=== PATIENT | male | born 1995 | race Caucasian/White ===

== ENCOUNTER → 2019-10-17 | Outpatient (CLI) | payer OTHER | END | disposition home or self-care (01) | LOC: RADECHMAIN 12:03 | PROVIDERS: ATTEND Family Medicine | DX: R00.2 Palpitations (principal) | CPT/HCPCS: 93225; 93226 ==

== ENCOUNTER 2021-02-13 01:37 | Emergency (ER) | payer OTHER ==
[2021-02-13 01:49] VITALS: RESP 18
--- NOTE | 2021-02-13 02:07 | ED ---
Alcohol HPI - General Chief Complaint: Extremity Injury, Upper Stated Complaint: ETOH, hand and knee injury Time Seen by Provider: 02/13/21 01:41 Source: EMS, RN notes reviewed, old records reviewed Mode of arrival: EMS Limitations: no limitations - History of Present Illness Initial Comments: This is a 25-year-old male presented today for evaluation of intoxication. Alcohol intoxication. Patient presents today for evaluation of alcohol use as well as pain pain in his hand pain in his knee. No other injury noted. 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 -: hour(s) Previous Visits for Alcohol Intoxication?: Yes Recent Trauma: Yes Associated Symptoms: denies other symptoms Treatments Prior to Arrival: none Chronic Alcohol Use: Yes - Related Data Home Medications Medication Instructions Recorded Confirmed Levothyroxine Sodium [Synthroid] 75 mcg PO DAILY 02/16/21 02/16/21 Metoprolol Succinate (ER) [Toprol 25 mg PO DAILY 02/16/21 02/16/21 Xl] Prochlorperazine [Compazine] 5 mg PO Q6H PRN 02/16/21 02/16/21 QUEtiapine [SEROquel] 100 mg PO HS 02/16/21 02/16/21 Sertraline [Zoloft] 150 mg PO DAILY 02/16/21 02/16/21 cloNIDine HCL [Catapres] 0.1 mg PO DAILY PRN 02/16/21 02/16/21 hydrOXYzine HCL 25 mg PO TID PRN 02/16/21 02/16/21 Allergies Allergy/AdvReac Type Severity Reaction Status Date / Time No Known Allergies Allergy Verified 02/16/21 18:08 Review of Systems ROS Statement: Those systems with pertinent positive or pertinent negative responses have been documented in the HPI. ROS Other: All systems not noted in ROS Statement are negative. General Exam Limitations: no limitations General appearance: alert, in no apparent distress, appears intoxicated Head exam: Present: atraumatic, normocephalic, normal inspection Eye exam: Present: normal appearance, PERRL, EOMI. Absent: scleral icterus, c onjunctival injection, periorbital swelling ENT exam: Present: normal exam, mucous membranes moist Neck exam: Present: normal inspection. Absent: tenderness, meningismus, lymphadenopathy Respiratory exam: Present: normal lung sounds bilaterally. Absent: respiratory distress, wheezes, rales, rhonchi, stridor Cardiovascular Exam: Present: regular rate, normal rhythm, normal heart sounds. Absent: systolic murmur, diastolic murmur, rubs, gallop, clicks GI/Abdominal exam: Present: soft, normal bowel sounds. Absent: distended, tenderness, guarding, rebound, rigid Extremities exam: Present: normal inspection, full ROM, normal capillary refill. Absent: tenderness, pedal edema, joint swelling, calf tenderness Back exam: Present: normal inspection Neurological exam: Present: alert, oriented X3, CN II-XII intact Psychiatric exam: Present: normal affect, normal mood Skin exam: Present: warm, dry, intact, normal color. Absent: rash Course Vital Signs 02/13/21 02/13/21 01:40 05:26 Temperature 99 F 98.2 F Pulse Rate 96 98 Respiratory 18 18 Rate Blood Pressure 134/81 122/78 O2 Sat by Pulse 98 95 Oximetry - Reevaluation(s) Reevaluation #1: Medical record is reviewed Patient has improved symptoms here in the emergency department Patient's in no acute distress Patient informed results and questions answered Medical Decision Making - Medical Decision Making 22 female DF for evaluation, patient Dese for alcohol intoxication. He complained had pain knee pain. No injuries found. Patient can be discharged home - Radiology Data Radiology results: report reviewed (X-ray knee x-ray hand negative for acute disease), image reviewed Disposition Clinical Impression: Alcohol intoxication Disposition: HOME SELF-CARE Condition: Good Instructions (If sedation given, give patient instructions): Alcohol Intoxication (ED) Is patient prescribed a controlled substance at d/c from ED?: No Referrals: Mundo Faust DO [Primary Care Provider] - 1-2 days
--- NOTE | 2021-02-13 03:04 | XR ---
EXAMINATION TYPE: XR hand complete RT DATE OF EXAM: 02/13/2021 COMPARISON: NONE HISTORY: Pain TECHNIQUE: 2 views FINDINGS: There is deformity of the distal fifth metacarpal related to an apparent old healed fractur e. I see no acute fracture nor dislocation. There is soft tissue swelling on the dorsum of the hand. IMPRESSION: Soft tissue swelling. No acute fracture seen.
--- NOTE | 2021-02-13 03:05 | XR ---
EXAMINATION TYPE: XR knee complete LT DATE OF EXAM: 02/13/2021 COMPARISON: NONE HISTORY: Pain and bruising TECHNIQUE: 2 views FINDINGS: I see no fracture nor dislocation. Joint spaces are normal. There is no sign of joint effus ion. IMPRESSION: Negative left knee exam.
[2021-02-13 05:29] VITALS: BP 122/78; PULSE 98; TEMP 98.2
== END 2021-02-13 05:31 | disposition home or self-care (01) ==
LOC: EC 01:37
DX: F10.129 Alcohol abuse with intoxication, unspecified (principal); M25.562 Pain in left knee; M79.641 Pain in right hand; M79.89 Other specified soft tissue disorders; Y04.0XXA Assault by unarmed brawl or fight, initial encounter; Y92.89 Other specified places as the place of occurrence of the external cause
CPT/HCPCS: 99283

== ENCOUNTER 2021-02-16 16:15 | Emergency (ER) | payer OTHER ==
[2021-02-16 16:27] VITALS: BP 136/81; PULSE 90; RESP 16; TEMP 98
[2021-02-16 17:41] LABS: Amphetamine Screen,Urine Not Detected (NotDetected); Barbiturate Screen,Urine Not Detected (NotDetected); Benzodiazepines Screen,Urine Detected (NotDetected); Cocaine Screen,Urine Not Detected (NotDetected); Methadone Screen, Urine Not Detected (NotDetected); Opiate Screen,Urine Not Detected (NotDetected); Oxycodone Screen, Urine Not Detected (NotDetected); Phencyclidine Screen,Urine Not Detected (NotDetected); Tricyclic Antidepressant,Urine Not Detected (NotDetected); Urn Cannabinoid Scrn Not Detected (NotDetected)
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
== END 2021-02-16 18:31 | disposition home or self-care (01) ==
LOC: EC 16:15
DX: F32.9 Major depressive disorder, single episode, unspecified (principal); F10.129 Alcohol abuse with intoxication, unspecified; E07.9 Disorder of thyroid, unspecified; I10 Essential (primary) hypertension; F17.290 Nicotine dependence, other tobacco product, uncomplicated; Z79.899 Other long term (current) drug therapy; Z79.890 Hormone replacement therapy
CPT/HCPCS: 80306; 82075; 99284

== ENCOUNTER 2021-12-08 16:22 | Observation (INO) | payer OTHER ==
[2021-12-08 17:05] LABS: ALT 55 U/L (4-49); AST 63 U/L (17-59); African American GFR (CKD) >90 (>60 ml/min/1.73 sqM); Albumin 5.5 g/dL (3.5-5.0); Alkaline Phosphatase 96 U/L (38-126); Anion Gap 17 mmol/L; Blood Urea Nitrogen 12 mg/dL (9-20); Calcium 10.6 mg/dL (8.4-10.2); Carbon Dioxide 19 mmol/L (22-30); Chloride 102 mmol/L (98-107); Glucose 111 mg/dL (74-99); Magnesium 1.9 mg/dL (1.6-2.3); Non-African American GFR(CKD) >90 (>60 ml/min/1.73 sqM); Potassium 4.1 mmol/L (3.5-5.1); Sodium 138 mmol/L (137-145); Total Bilirubin 1.2 mg/dL (0.2-1.3); Total Protein 9.5 g/dL (6.3-8.2)
[2021-12-08 17:11] LABS: Basophils # (A) 0.1 k/uL (0-0.2); Basophils % (A) 1 %; Eosinophils # (A) 0.1 k/uL (0-0.7); Eosinophils % (A) 1 %; HCT 49.7 % (39.0-53.0); HGB 17.7 gm/dL (13.0-17.5); Lymphocytes # (A) 1.6 k/uL (1.0-4.8); Lymphocytes % (A) 13 %; MCH 31.2 pg (25.0-35.0); MCHC 35.7 g/dL (31.0-37.0); MCV 87.5 fL (80.0-100.0); Mean Platelet Volume 6.7; Monocytes # (A) 0.7 k/uL (0-1.0); Monocytes % (A) 5 %; Neutrophils # (A) 10.1 k/uL (1.3-7.7); Neutrophils % (A) 80 %; Platelet Count 337 k/uL (150-450); RBC 5.68 m/uL (4.30-5.90); RDW 13.4 % (11.5-15.5); WBC 12.7 k/uL (3.8-10.6)
[2021-12-08 17:26] LABS: INR 1.1 (<1.2)
[2021-12-08 17:27] LABS: Partial Thromboplastin Time 28.1 sec (22.0-30.0); Prothrombin Time 11.4 sec (9.0-12.0)
--- NOTE | 2021-12-08 17:27 | XR ---
EXAMINATION: XR chest 2V DATE AND TIME: 12/08/2021 5:06 PM CLINICAL INDICATION: PHH; Chest Pain TECHNIQUE: PA and lateral views COMPARISON: 11/27/2021 FINDINGS: The lungs are clear. The pleural spaces are negative. The cardiac silhouette is not enlarged. The remainder of the mediastinal silhouette is unremarkable. The skeletal structures and soft tissues are negative for acute findings. IMPRESSION: NO ACUTE PROCESS.
[2021-12-08] MEDS ORDERED: LORazepam 1 MG TAB PO STA (19:02)
--- NOTE | 2021-12-08 19:04 | ED ---
Chest Pain HPI - General Chief Complaint: Chest Pain Stated Complaint: Palpitations,High BP,Chest pains Time Seen by Provider: 12/08/21 18:49 Source: patient, RN notes reviewed Mode of arrival: ambulatory Limitations: no limitations - History of Present Illness Initial Comments: This is a pleasant 25-year-old male who presents to the emergency department complaining of palpitations and intermittent chest pain. Patient states it started a few hours ago. Patient denies any shortness of breath. Patient has had several instances of this in the past, he states some 30 times. He was recently seen here on November 27 for similar symptoms. At that time we did double the patient's metoprolol. However the patient has not followed up with his regular physician for any further care. Patient does suffer from anxiety and depression as well. Denies any fever or chills. No headache, no fever or chills, no changes in vision or hearing, no sore throat or difficulty with speech, no neck pain, no abdominal pain, no nausea or vomiting, no changes in urination or bowel movements, no numbness or tingling, no extremity pain, no skin rashes or lesions. - Related Data Home Medications Medication Instructions Recorded Confirmed Levothyroxine Sodium [Synthroid] 75 mcg PO DAILY 02/16/21 02/16/21 Metoprolol Succinate (ER) [Toprol 25 mg PO DAILY 02/16/21 02/16/21 Xl] Prochlorperazine [Compazine] 5 mg PO Q6H PRN 02/16/21 02/16/21 QUEtiapine [SEROquel] 100 mg PO HS 02/16/21 02/16/21 Sertraline [Zoloft] 150 mg PO DAILY 02/16/21 02/16/21 cloNIDine HCL [Catapres] 0.1 mg PO DAILY PRN 02/16/21 02/16/21 hydrOXYzine HCL 25 mg PO TID PRN 02/16/21 02/16/21 Previous Rx's Medication Instructions Recorded LORazepam [Ativan] 0.5 mg PO TID PRN #9 tab 12/08/21 Allergies Allergy/AdvReac Type Severity Reaction Status Date / Time No Known Allergies Allergy Verified 12/08/21 16:33 Review of Systems ROS Statement: Those systems with pertinent positive or pertinent negative responses have been documented in the HPI. ROS Other: All systems not noted in ROS Statement are negative. EKG Findings - EKG Comments: EKG Findings:: EKG done at 1638 and rhythm with ED attending physician reveals sinus rhythm rate of 99. Normal axis. Artifact noted. Normal intervals. No acute ST or T-wave changes. 1 compared to previous study from 11/27/2021 there is no significant change. Past Medical History Past Medical History: Hypertension, Thyroid Disorder History of Any Multi-Drug Resistant Organisms: None Reported Past Surgical History: No Surgical Hx Reported Past Psychological History: Anxiety, Bipolar, Depression Smoking Status: Vaper Past Alcohol Use History: Abuse, Daily, Heavy Past Drug Use History: None Reported General Exam - General Exam Comments Initial Comments: Patient in mild distress, appears to be anxious, vital signs reviewed, cranial nerves II through XII grossly intact Limitations: no limitations General appearance: alert, in distress Head exam: Present: atraumatic, normocephalic, normal inspection Eye exam: Present: normal appearance, PERRL, EOMI. Absent: scleral icterus, conjunctival injection, periorbital swelling ENT exam: Present: normal exam, mucous membranes moist Neck exam: Present: normal inspection, full ROM. Absent: tenderness, meningismus, lymphadenopathy Respiratory exam: Present: normal lung sounds bilaterally, chest wall tenderness. Absent: respiratory distress, wheezes, rales, rhonchi, stridor, accessory muscle use, decreased breath sounds, prolonged expiratory Cardiovascular Exam: Present: regular rate, normal rhythm, normal heart sounds. Absent: systolic murmur, diastolic murmur, rubs, gallop, clicks GI/Abdominal exam: Present: soft, normal bowel sounds. Absent: distended, tenderness, guarding, rebound, rigid Extremities exam: Present: normal inspection, full ROM, normal capillary refill. Absent: tenderness, pedal edema, joint swelling, calf tenderness Back exam: Present: normal inspection Neurological exam: Present: alert, oriented X3, CN II-XII intact Psychiatric exam: Present: normal affect, normal mood Skin exam: Present: warm, dry, intact, normal color. Absent: rash Course Vital Signs 12/08/21 16:31 Temperature 97.7 F Pulse Rate 104 H Respiratory 20 Rate Blood Pressure 160/104 O2 Sat by Pulse 100 Oximetry Chest Pain MDM - MDM She presents with recurrent palpitations. Patient also has chest wall tenderness. Suspect this is related to anxiety as the patient has a normal chest x-ray, no changes to his EKG, normal troponin, normal d-dimer. Minimal elevations to liver enzymes are nonspecific. Discussed the findings with the patient. All questions answered. The case was discussed in detail with ED attending physician. Presentation, findings, treatment plan discussed in detail. Dr. Poole Patient was told to return to the ER for any signs or symptoms worsen. Told to return immediately if any other problems arise. All questions answered. Treatment plan discussed. Patient in agreement Every effort has been made to ensure accuracy of this dictation. However, due to the limitations of electronic medical records and dictation devices, errors in charting still occur. Disposition Clinical Impression: Palpitations, Chest wall pain, Anxiety, Uncontrolled hypertension Disposition: HOME SELF-CARE Condition: Stable Instructions (If sedation given, give patient instructions): Chest Pain (ED), Hypertension (ED), Anxiety (ED) Additional Instructions: Follow-up with the regular doctor. Call tomorrow for an appointment. Return to the ER if any symptoms worsen. Prescriptions: LORazepam [Ativan] 0.5 mg PO TID PRN #9 tab PRN Reason: Anxiety Is patient prescribed a controlled substance at d/c from ED?: Yes If prescribed controlled substance>3 days was MAPS reviewed?: Prescribed <3 Days Referrals: Efren Grier [Primary Care Provider] - 1-2 days Time of Disposition: 19:46
[2021-12-08] MEDS ORDERED: LORazepam 1 MG TAB PO ONE (19:30)
[2021-12-08 19:43] LABS: Amphetamine Screen,Urine Detected (NotDetected); Barbiturate Screen,Urine Not Detected (NotDetected); Benzodiazepines Screen,Urine Not Detected (NotDetected); Cocaine Screen,Urine Not Detected (NotDetected); Methadone Screen, Urine Not Detected (NotDetected); Opiate Screen,Urine Not Detected (NotDetected); Oxycodone Screen, Urine Not Detected (NotDetected); Phencyclidine Screen,Urine Not Detected (NotDetected); Tricyclic Antidepressant,Urine Not Detected (NotDetected); Urn Cannabinoid Scrn Detected (NotDetected)
[2021-12-08] MEDS ORDERED: cloNIDine HCL 0.2 MG TAB PO STA (20:13)
[2021-12-08] MEDS ORDERED: NALOXONE 0.4 MG/ML 1 ML VIAL IV PRN (21:46)
[2021-12-08] MEDS ORDERED: MORPHINE SULFATE 4 MG/ML SYRINGE IV PRN (21:46)
[2021-12-08] MEDS ORDERED: LORazepam 0.5 MG TAB PO PRN ×2 (21:46→23:19)
[2021-12-08] MEDS ORDERED: ONDANSETRON 4 MG/2 ML VIAL IVP PRN (21:46)
[2021-12-08] MEDS ORDERED: ACETAMINOPHEN TAB 325 MG TAB PO PRN (21:46)
[2021-12-08] MEDS ORDERED: LABETALOL 5 MG/ML VIAL MDV IVP ONE ×2 (22:00→23:30)
[2021-12-08] MEDS: SODIUM CHLORIDE 0.9% 1,000 ML IV SCH (22:30)
[2021-12-08] MEDS ORDERED: LORazepam 2 MG/ML INJ IV PRN ×4 (23:22→23:59)
[2021-12-08] MEDS ORDERED: cloNIDine HCL 0.2 MG TAB PO PRN (23:23)
[2021-12-08] MEDS ORDERED: METOPROLOL TARTRATE 50 MG TAB PO ONE (23:30)
[2021-12-09] MEDS ORDERED: cloNIDine HCL 0.1 MG TAB PO PRN (00:44)
--- NOTE | 2021-12-09 00:47 | P.HPIM ---
History of Present Illness H&P Date: 12/08/21 Chief Complaint: anxiety , chest pressure 25 year old male with hypothyroid , hypertension , bipolar disorder patient comes in with episode of chest tightness , hear racing, what he describes frequent anxiety/panic attacks. he was out with his friends , nothing stressful , parking the car, when suddenly felt another episode of what he describes is frequent anxiety attacks. he denies any syncope or near syncope, but he does feel chest tightness, palpitations, diaphoresis, and heavy breathing. he is not aware of secondary causes of hypertension like pheochromocytoma, or renal artery stenosis, he is not aware of any workup , but admits to history of hypertension , he is currently on metoprolol where his doctor has been increasing dosage for better control, however, he notices readings occasionally in the high 190 to low 200. and heart racing in the 100s he also admit to long history of alcohol abuse, he used to drink liquor however,recently cut back and switched to beers only , his last drink is yesterday and usually cant go more than 2 days without alcohol , he had severe withdrawals in the past and withdrawal seizures. patient claims last drink was yesterday he denies any recreational drugs or tobacco smoking however, when asked about his positive urine drug screen results with meth, amphetamin and marijuana. he explained smoking marijuana recently once, and taking one pill of adderall denies any respiratory symptoms, abd pain, nausea or vomiting, or diarrhea Review of Systems Pertinent positives as noted in HPI. All other systems were reviewed and are negative Past Medical History Past Medical History: Hypertension, Thyroid Disorder History of Any Multi-Drug Resistant Organisms: None Reported Past Surgical History: No Surgical Hx Reported Past Psychological History: Anxiety, Bipolar, Depression Smoking Status: Vaper Past Alcohol Use History: Abuse, Daily, Heavy Past Drug Use History: None Reported - Past Family History family Family Medical History: No Reported History Medications and Allergies Home Medications Medication Instructions Recorded Confirmed Type Levothyroxine Sodium [Synthroid] 75 mcg PO DAILY 02/16/21 12/08/21 History Metoprolol Succinate (ER) [Toprol 25 mg PO DAILY 02/16/21 12/08/21 History Xl] QUEtiapine [SEROquel] 100 mg PO HS 02/16/21 12/08/21 History Sertraline [Zoloft] 150 mg PO DAILY 02/16/21 12/08/21 History cloNIDine HCL [Catapres] 0.1 mg PO DAILY PRN 02/16/21 12/08/21 History hydrOXYzine HCL 25 mg PO TID PRN 02/16/21 12/08/21 History LORazepam [Ativan] 0.5 mg PO TID PRN #9 tab 12/08/21 Rx Allergies Allergy/AdvReac Type Severity Reaction Status Date / Time No Known Allergies Allergy Verified 12/08/21 22:15 Physical Exam Vitals: Vital Signs Temp Pulse Resp BP Pulse Ox 12/08/21 22:30 97 20 174/122 12/08/21 22:00 114 H 18 213/127 12/08/21 21:30 93 12 212/125 12/08/21 20:30 96 16 190/127 12/08/21 16:31 97.7 F 104 H 20 160/104 100 Intake and Output 12/08/21 12/08/21 12/09/21 14:59 22:59 06:59 Other: Weight 101.151 kg Constitutional: Nanxious, conversant, pleasant Eyes: Anicteric sclerae, moist conjunctiva, Pupils equal round reactive to light ENMT: NC/AT Oropharynx clear, no erythema, or exudates Neck: Supple, no masses, or JVD No carotid bruits No thyromegaly Lungs: Clear to auscultation Clear to percussion Normal respiratory effort, no accessory muscle use Cardiovascular: Heart regular in rate and rhythm, No murmurs, gallops, or rubs No peripheral edema Abdominal: Soft Nontender, no guarding, rebound or rigidity Abdomen moving with respiration Normoactive bowel sounds No hepatomegaly, No splenomegaly No palpable mass No abdominal wall hernia noted Skin: Normal temperature, tone, texture, turgor No induration No subcutaneous nodules No rash, lesions No ulcers Extremities: No digital cyanosis No clubbing Pedal pulses intact and symmetrical Radial pulses intact and symmetrical No calf tenderness Psychiatric: Alert and oriented to person, place and time Appropriate affect fair judgement Neuro Muscles Strength 5/5 in all 4 extremities Sensation to light touch grossly present throughout Cranial nerves II-XII grossly intact No focal sensory deficits Lymphatics: no palpable cervical or supraclavicular , or inguinal lymph nodes Results CBC & Chem 7: 12/08/21 16:45 12/08/21 16:45 Labs: Abnormal Lab Results - Last 24 Hours (Table) 12/08/21 12/08/21 12/08/21 Range/Units 16:45 16:45 19:25 WBC 12.7 H (3.8-10.6) k/uL Hgb 17.7 H (13.0-17.5) gm/dL Neutrophils # 10.1 H (1.3-7.7) k/uL Carbon Dioxide 19 L (22-30) mmol/L Glucose 111 H (74-99) mg/dL Calcium 10.6 H (8.4-10.2) mg/dL AST 63 H (17-59) U/L ALT 55 H (4-49) U/L Total Protein 9.5 H (6.3-8.2) g/dL Albumin 5.5 H (3.5-5.0) g/dL Ur Amphetamines Screen Detected H (NotDetected) U Methamphetamines Scrn Detected H (NotDetected) U Marijuana (THC) Screen Detected H (NotDetected) Assessment and Plan Assessment: anxiety/panic attacks rule out secondary causes of hypertension alcohol withdrawal , with autonomic dysfunction uncontrolled hypertension plan check plasma free metanephrine renal artery duplex US clonidine PRN continue with home dose of metoprolol alcohol withdrawal precautions seizure precautions PRN benzo per CIWA thiamine polysubstance abuse positive urine drug screen positive amphetamine and marijuana hypothyroid resume home meds check tsh free t4 DVT PPX heparin sc tid full code anticipated length of stay > 2 midnights
[2021-12-09] MEDS: LORazepam 2 MG/ML INJ IV PRN ×6 (01:50→10:21)
[2021-12-09] MEDS ORDERED: cloNIDine HCL 0.1 MG TAB PO STA (04:35)
[2021-12-09] MEDS: SODIUM CHLORIDE 0.9% 1,000 ML IV SCH ×2 (05:47→13:14)
[2021-12-09] MEDS: LEVOTHYROXINE 75 MCG TAB PO SCH (06:49)
[2021-12-09] MEDS: METOPROLOL TARTRATE 50 MG TAB PO SCH (08:55)
[2021-12-09] MEDS: SERTRALINE 50 MG TAB PO SCH (08:55)
[2021-12-09] MEDS: METOPROLOL SUCCINATE (ER) 25 MG TAB.ER.24H PO SCH (08:55)
[2021-12-09 09:37] LABS: African American GFR (CKD) 98.2 (60.0-200.0); Anion Gap 16.7 mmol/L (10.00-18.00); BUN/Creat Ratio 11.75 Ratio (12.00-20.00); Blood Urea Nitrogen 14.1 mg/dL (9.0-27.0); Calcium 10.2 mg/dL (8.7-10.3); Carbon Dioxide 20.3 mmol/L (20.0-27.5); Magnesium 2.1 mg/dL (1.5-2.4); Non-African American GFR(CKD) 84.7 (60.0-200.0); Potassium 4.1 mmol/L (3.5-5.5)
--- NOTE | 2021-12-09 09:40 | XR ---
EXAMINATION TYPE: XR elbow complete LT DATE OF EXAM: 12/09/2021 COMPARISON: None HISTORY: Possible foreign body TECHNIQUE: 3 view left elbow FINDINGS: No acute fracture or dislocation is evident. Radius aligns normally with the humerus. Attention is paid to the antecubital fossa and soft tissues. No radiopaque foreign bodies are identif ied. IMPRESSION: 1. No radiopaque foreign bodies identified. 2. No acute osseous abnormality.
[2021-12-09] MEDS ORDERED: LABETALOL 5 MG/ML VIAL MDV IVP PRN (11:59)
[2021-12-09] MEDS ORDERED: chlorproMAZINE 25 MG TAB PO STA (12:41)
[2021-12-09] MEDS ORDERED: chlorproMAZINE 25 MG/ML 2 ML AMP IM PRN (13:00)
[2021-12-09] MEDS ORDERED: chlorproMAZINE 25 MG TAB PO PRN (13:00)
--- NOTE | 2021-12-09 13:13 | P.CN ---
Psychiatric Consult - . Consult date: 12/09/21 Consult:: 12/09/21 13:12 IDENTIFYING DATA: This patient is a 24-year-old male with a significant history of methamphetamine abuse who presented to the hospital with complaints of palpitations and chest pain. HISTORY OF PRESENT ILLNESS: The patient presented to the hospital on 12/08/2021, with a chief complaint of palpitations and chest pain. The patient has been previously evaluated on 11/27/2021, with similar symptoms. Psychiatry has been consulted for a psychiatric evaluation. Continues to be elevated at 183/130 with a heart rate of 107 beats per minute. Upon evaluation in the emergency department, the patient appears to be grossly disorganized at this time. He is a poor historian of events leading up to his presentation in the emergency department. Currently, the patient is unable to verbalize why psychiatry speaking with him. He appears to be fixated and concern that the nurses are "lying about me to others." He has difficulty in answering questions and focusing on with this provider is asking of him. The patient does admit that he used methamphetamines. He states that it has been more than a week since he last used however as the interview progressed, he admitted to recent methamphetamine, Adderall, and "one other drug." The patient is unable to verbalize clearly when he last used. He is denying any auditory or visual hallucinations at this time. He reports no suicidal or homicidal ideation, intention, and/or plan. He does report that he has been having difficulty with sleep was unable to verbalize when he last left. PAST PSYCHIATRIC HISTORY: Patient is unable to provide any clear psychiatric history. Patient is currently prescribed regimen of Vistaril, Zoloft, Seroquel, and Catapres. The patient reports that he was hospitalized psychiatrically when he was in his teens. He does report that during that time, he was "using a lot of drugs." He does report that he follows up outpatient was unable to identify where and with whom. He denies any prior attempts at suicide at this time. PAST MEDICAL HISTORY: Past Medical History: Hypertension, Thyroid Disorder History of Any Multi-Drug Resistant Organisms: None Reported Past Surgical History: No Surgical Hx Reported Past Psychological History: Anxiety, Bipolar, Depression Smoking Status: Vaper Past Alcohol Use History: Abuse, Daily, Heavy Past Drug Use History: None Reported ALLERGIES: NO KNOWN DRUG ALLERGIES CHEMICAL DEPENDENCY HISTORY: As per chart review, the patient has a previous history of acute alcohol withdrawal and intoxication. He has been testing positive for methamphetamines and amphetamines. He is unable to verbalize what he has been using but does admit to using meth and Adderall illicitly to this provider. FAMILY PSYCHIATRIC/SUBSTANCE USE HISTORY: Unable to obtain at this time. SOCIAL HISTORY: Patient is listed as single and part-time employed. Unable to determine other social history at this time per MENTAL STATUS EXAM: General Appearance: Patient appears to be stated age is alert and very guarded. Patient appears to have slightly disheveled hygiene and grooming wearing hospital gown with poor eye contact. Behavior: Patient presents with psychomotor agitation. He constantly looks out the window of his room and expresses "the nurse is lying about me." Speech: Patient's speech is nonsensical, difficult to follow, hyperverbal, repetitive. Mood/Affect: Patient reports their mood is "I don't know", affect is intense Suicidality/Homicidality: Currently denying suicidal or homicidal ideation. Perceptions: Unable to determine at this time. Though content/process: Patient appears to be grossly intoxicated and likely under the influence of methamphetamines. Paranoid delusional thought content is endorsed. Memory and concentration: Grossly poor at this time. Judgment and insight: Very poor. Vital Signs Temp 98.6 F 12/09/21 13:07 Pulse 105 H 12/09/21 13:07 Resp 20 12/09/21 13:07 BP 181/121 12/09/21 13:07 Pulse Ox 97 12/09/21 13:07 Intake & Output 12/08/21 12/09/21 12/09/21 18:59 06:59 18:59 Weight 101.151 kg 101.151 kg Laboratory Results - Last 24 Hours 12/08/21 12/08/21 12/08/21 16:45 16:45 16:45 WBC 12.7 H RBC 5.68 Hgb 17.7 H Hct 49.7 MCV 87.5 MCH 31.2 MCHC 35.7 RDW 13.4 Plt Count 337 MPV 6.7 Neutrophils % 80 Lymphocytes % 13 Monocytes % 5 Eosinophils % 1 Basophils % 1 Neutrophils # 10.1 H Lymphocytes # 1.6 Monocytes # 0.7 Eosinophils # 0.1 Basophils # 0.1 PT 11.4 INR 1.1 APTT 28.1 D-Dimer <0.17 Sodium 138 Potassium 4.1 Chloride 102 Carbon Dioxide 19 L Anion Gap 17 BUN 12 Creatinine 1.06 Est GFR (CKD-EPI)AfAm >90 Est GFR (CKD-EPI)NonAf >90 BUN/Creatinine Ratio Glucose 111 H Calcium 10.6 H Magnesium 1.9 Total Bilirubin 1.2 AST 63 H ALT 55 H Alkaline Phosphatase 96 Troponin I Total Protein 9.5 H Albumin 5.5 H TSH Free (T4) Reflex I Urine Opiates Screen Ur Oxycodone Screen Urine Methadone Screen Ur Propoxyphene Screen Ur Barbiturates Screen U Tricyclic Antidepress Ur Phencyclidine Scrn Ur Amphetamines Screen U Methamphetamines Scrn U Benzodiazepines Scrn Urine Cocaine Screen U Marijuana (THC) Screen 12/08/21 12/08/21 12/09/21 16:45 19:25 01:33 WBC RBC Hgb Hct MCV MCH MCHC RDW Plt Count MPV Neutrophils % Lymphocytes % Monocytes % Eosinophils % Basophils % Neutrophils # Lymphocytes # Monocytes # Eosinophils # Basophils # PT INR APTT D-Dimer Sodium Potassium Chloride Carbon Dioxide Anion Gap BUN Creatinine Est GFR (CKD-EPI)AfAm Est GFR (CKD-EPI)NonAf BUN/Creatinine Ratio Glucose Calcium Magnesium Total Bilirubin AST ALT Alkaline Phosphatase Troponin I <0.012 <0.012 Total Protein Albumin TSH Free (T4) Reflex I Urine Opiates Screen Not Detected Ur Oxycodone Screen Not Detected Urine Methadone Screen Not Detected Ur Propoxyphene Screen Not Detected Ur Barbiturates Screen Not Detected U Tricyclic Antidepress Not Detected Ur Phencyclidine Scrn Not Detected Ur Amphetamines Screen Detected H U Methamphetamines Scrn Detected H U Benzodiazepines Scrn Not Detected Urine Cocaine Screen Not Detected U Marijuana (THC) Screen Detected H 12/09/21 12/09/21 05:40 05:40 WBC RBC Hgb Hct MCV MCH MCHC RDW Plt Count MPV Neutrophils % Lymphocytes % Monocytes % Eosinophils % Basophils % Neutrophils # Lymphocytes # Monocytes # Eosinophils # Basophils # PT INR APTT D-Dimer Sodium 134 L Potassium 4.1 Chloride 97 Carbon Dioxide 20.3 Anion Gap 16.70 BUN 14.1 Creatinine 1.2 Est GFR (CKD-EPI)AfAm 98.2 Est GFR (CKD-EPI)NonAf 84.7 BUN/Creatinine Ratio 11.75 L Glucose 135 H Calcium 10.2 Magnesium 2.1 Total Bilirubin AST ALT Alkaline Phosphatase Troponin I <0.012 Total Protein Albumin TSH 8.490 H Free (T4) Reflex I 1.540 Urine Opiates Screen Ur Oxycodone Screen Urine Methadone Screen Ur Propoxyphene Screen Ur Barbiturates Screen U Tricyclic Antidepress Ur Phencyclidine Scrn Ur Amphetamines Screen U Methamphetamines Scrn U Benzodiazepines Scrn Urine Cocaine Screen U Marijuana (THC) Screen IMPRESSIONS: Acute stimulant intoxication Methamphetamine use disorder Stimulant use disorder PLAN: -At this time patient DOES NOT meet criteria for inpatient psychiatric admission. The patient is currently not medically stable with elevated blood pressure and heart rate. The patient does appear to be acutely intoxicated at this time. Psychiatry will continue to evaluate whether the patient requires inpatient psychiatric care upon medical stabilization. -Would recommend the following medication changes/additions: Continue home regimen of Seroquel, Zoloft, and clonidine. We'll administer one- time dose of 50 mg of Thorazine in order to address acute agitation at this time. Thorazine 50 mg IM every 6 hours when necessary ordered for agitation/acute psychosis. -Continue 1:1 sitter for safety -Cannot leave AMA at this time. Patient is currently does not have capacity for medical decision making as he is acutely intoxicated. -Psychiatry will continue to follow along. If the patient continues to display prolonged psychosis, we will consider inpatient psychiatric hospitalization. 12/09/21 13:12
--- NOTE | 2021-12-09 13:57 | US ---
EXAMINATION TYPE: US renal artery duplex complet DATE OF EXAM: 12/09/2021 COMPARISON: NONE CLINICAL HISTORY: uncontrolled BP, renal artery stenosis ?. MEASUREMENTS: RENAL SIZE: Rt Kidney: 11.1 x 4.4 x 5.5 cm Lt Kidney: 12.0 x 5.5 x 5.7 cm RESISTANCE INDEX Unable to obtain. RA/AO RATIO (< 3.5 ) Right: 2.1 Left: 1.9 RA VELOCITY ( < 180 cm/s) Right: 163 Left: 150 Patient unable to cooperate for exam. Basically a non diagnostic exam. Limited doppler signals as pat ient cannot hold still or hold breath. There is good color perfusion to kidneys. Possibly a CTA coul d be performed if there is suspected renal artery stenosis. IMPRESSION: No obvious stenosis is evident. Exam is limited due to patient cooperation. Color flow appears to be present without obstruction.
[2021-12-09] MEDS ORDERED: NICOTINE 7MG/24HR PATCH TRANSDERM STA (14:17)
--- NOTE | 2021-12-09 15:29 | P.PN ---
Subjective Progress Note Date: 12/09/21 Principal diagnosis: etoh and meth abuse Today patient is having auditory and visual hallucinations. He is seeing ''people punching his mother'. He states he was having chest and neck pain. No sob. No fevers. His last etoh use was yesterday according to him. Objective - Vital Signs Vital signs: Vital Signs Temp 98.6 F 12/09/21 13:07 Pulse 101 H 12/09/21 15:00 Resp 18 12/09/21 15:00 BP 153/77 12/09/21 15:00 Pulse Ox 100 12/09/21 15:00 Intake & Output 12/08/21 12/09/21 12/09/21 18:59 06:59 18:59 Weight 101.151 kg 101.151 kg - Exam Constitutional: No acute distress, conversant, pleasant Eyes:Anicteric sclerae, moist conjunctiva, no lid-lag, PERRLA, ENMT: Oropharynx clear, no erythema, exudates Neck: Supple, FROM, no masses, or JVD, No carotid bruits, No thyromegaly Lungs: Clear to auscultation, Clear to percussion, Normal respiratory effort, no accessory muscle use Cardiovascular: Tachy, regular in rate and rhythm, No murmurs, gallops, or rubs, No peripheral edema Abdominal: Soft, Nontender, no guarding, rebound or rigidity, Normoactive bowel sounds, No hepatomegaly, No splenomegaly, No palpable mass Skin: Normal temperature, tone, texture, turgor, no induration, No subcutaneous nodules, No rash, lesions, No ulcers Extremities: No digital cyanosis, No clubbing, Pedal pulses intact and symmetrical, Radial pulses intact and symmetrical, No calf tenderness Psychiatric: Alert and oriented to person, place and time, impaired judgment Neuro: Bilateral tremors. Muscles Strength 5/5 in all 4 extremities, Sensation to light touch grossly present throughout, Cranial nerves II-XII grossly intact, no focal sensory deficits - Labs CBC & Chem 7: 12/08/21 16:45 12/09/21 05:40 Labs: Abnormal Lab Results - Last 24 Hours (Table) 12/08/21 12/08/21 12/08/21 Range/Units 16:45 16:45 19:25 WBC 12.7 H (3.8-10.6) k/uL Hgb 17.7 H (13.0-17.5) gm/dL Neutrophils # 10.1 H (1.3-7.7) k/uL Sodium (135-145) mmol/L Carbon Dioxide 19 L (22-30) mmol/L BUN/Creatinine Ratio (12.00-20.00) Ratio Glucose 111 H (74-99) mg/dL Calcium 10.6 H (8.4-10.2) mg/dL AST 63 H (17-59) U/L ALT 55 H (4-49) U/L Total Protein 9.5 H (6.3-8.2) g/dL Albumin 5.5 H (3.5-5.0) g/dL TSH (0.350-5.500) uIU/mL Ur Amphetamines Screen Detected H (NotDetected) U Methamphetamines Scrn Detected H (NotDetected) U Marijuana (THC) Screen Detected H (NotDetected) 12/09/21 Range/Units 05:40 WBC (3.8-10.6) k/uL Hgb (13.0-17.5) gm/dL Neutrophils # (1.3-7.7) k/uL Sodium 134 L (135-145) mmol/L Carbon Dioxide (22-30) mmol/L BUN/Creatinine Ratio 11.75 L (12.00-20.00) Ratio Glucose 135 H (74-99) mg/dL Calcium (8.4-10.2) mg/dL AST (17-59) U/L ALT (4-49) U/L Total Protein (6.3-8.2) g/dL Albumin (3.5-5.0) g/dL TSH 8.490 H (0.350-5.500) uIU/mL Ur Amphetamines Screen (NotDetected) U Methamphetamines Scrn (NotDetected) U Marijuana (THC) Screen (NotDetected) Assessment and Plan Plan: Anxiety/panic attacks Acute psychosis ETOH withdrawal with delirium tremens Uncontrolled hypertension polysubstance abuse with urine drug screen positive amphetamine and marijuana Add labetalol for bp control clonidine PRN continue with home dose of metoprolol alcohol withdrawal precautions and CIWA protocol. seizure precautions thiamine Consult psych hypothyroid resume home meds DVT PPX heparin sc tid full code
[2021-12-09] MEDS ORDERED: QUEtiapine 100 MG TAB PO SCH (21:00)
[2021-12-10 02:01] VITALS: RESP 18
[2021-12-10] MEDS: SODIUM CHLORIDE 0.9% 1,000 ML IV SCH ×3 (04:24→07:40)
[2021-12-10] MEDS: METOPROLOL TARTRATE 50 MG TAB PO SCH ×2 (04:25→07:40)
[2021-12-10] MEDS: LEVOTHYROXINE 75 MCG TAB PO SCH (06:44)
[2021-12-10] MEDS: SERTRALINE 50 MG TAB PO SCH (07:39)
[2021-12-10] MEDS: METOPROLOL SUCCINATE (ER) 25 MG TAB.ER.24H PO SCH (07:40)
[2021-12-10 11:54] VITALS: BP 124/74; PULSE 54; TEMP 97.6
--- NOTE | 2021-12-10 14:34 | P.DS ---
Providers Date of admission: 12/09/21 00:00 Expected date of discharge: 12/10/21 Attending physician: Pavan Carrasco MD Consults: 12/09/21 10:07 Consult Physician Stat Consulting Provider: Virgilio Bassett Reason/Comments: psych evaluation Do you want consulting provider notified?: Already Contacted Primary care physician: [facility] Course: 25 year old male with hypothyroid , hypertension , bipolar disorder long hx of substance abuse presented with chest tightness , heart racing, what he describes frequent anxiety/panic attacks. He was out with his friends, when suddenly felt another episode of what he describes is frequent anxiety attacks. No syncope or near syncope, but he does feel chest tightness, palpitations, diaphoresis, and heavy breathing. He admits to long history of alcohol abuse, he used to drink liquor however, recently cut back and switched to beers only , his last drink was the day prior to admission and usually can't go more than 2 days without alcohol, he had severe withdrawals in the past and withdrawal seizures. In the emergency department his blood pressure was elevated at 200 systolic. He was resumed on metoprolol and clonidine. Was also initiated on labetalol IV when necessary. He was subsequently admitted. During the admission he has some psychosis with auditory and visual hallucinations. This was most likely secondary to alcohol withdrawal. He was treated with Ativan as needed per the [facility] protocol. Urine tested positive for marijuana, methamphetamine. Hypertension is likely due to his substance abuse as well as withdrawal. He was seen by psychiatry as well. The next day he was almost back to normal. He denied any psychotic symptoms. He was alert and oriented. He was cleared by psychiatry for discharge. I discussed with his nurse that he needed substance abuse programs referral. He was counseled to quit alcohol and methamphetamine abuse. Time for discharge 35 min Patient Condition at Discharge: Stable Plan - Discharge Summary Discharge Rx Participant: No New Discharge Prescriptions: New LORazepam [Ativan] 0.5 mg PO TID PRN #9 tab PRN Reason: Anxiety Continue Levothyroxine Sodium [Synthroid] 75 mcg PO DAILY Sertraline [Zoloft] 150 mg PO DAILY QUEtiapine [SEROquel] 100 mg PO HS hydrOXYzine HCL 25 mg PO TID PRN PRN Reason: Anxiety cloNIDine HCL [Catapres] 0.1 mg PO DAILY PRN PRN Reason: HIGH BP Metoprolol Succinate (ER) [Toprol XL] 25 mg PO DAILY Discharge Medication List Levothyroxine Sodium [Synthroid] 75 mcg PO DAILY 02/16/21 [History] Metoprolol Succinate (ER) [Toprol XL] 25 mg PO DAILY 02/16/21 [History] QUEtiapine [SEROquel] 100 mg PO HS 02/16/21 [History] Sertraline [Zoloft] 150 mg PO DAILY 02/16/21 [History] cloNIDine HCL [Catapres] 0.1 mg PO DAILY PRN 02/16/21 [History] hydrOXYzine HCL 25 mg PO TID PRN 02/16/21 [History] LORazepam [Ativan] 0.5 mg PO TID PRN #9 tab 12/08/21 [Rx] Follow up Appointment(s)/Referral(s): Efren Grier [Primary Care Provider] - 1-2 days Patient Instructions/Handouts: Chest Pain (ED), Hypertension (ED), Anxiety (ED) Activity/Diet/Wound Care/Special Instructions: Follow-up with the regular doctor. Call tomorrow for an appointment. Return to the ER if any symptoms worsen.
--- NOTE | 2021-12-11 11:47 | P.PN ---
Subjective Progress Note Date: 12/10/21 Principal diagnosis: Acute stimulant intoxication Psychiatry Follow-up Note Patient was seen in follow-up on 12/10/2021 in weekend cross-coverage. Patient was found resting in his hospital bed with one-to-one sitter at bedside to maintain safety. He is alert and oriented to person place time and situation. He reports his mood is better than it has been. He denies suicidal ideations plan or intent. He denies homicidal ideations plan or intent. He denies his methamphetamine intoxication as being a suicide attempt. He notes reasons for living. He minimizes his substance abuse, but also states he does not plan on using methamphetamine ever again since this episode has taught him a lesson. He feels ready for discharge. He was living with his parents prior to admission. I called his parents (mom Enriqueta Medeiros and father Byron Medeiros [phone]). Mother denies patient has endorsed suicidal ideations or that this was a suicide attempt. Parents do report ongoing concern about his substance abuse and like to see him in treatment for substance abuse. Parents report concern that he has been stealing from them and trying to hide his substance abuse. Parents state that he will have to find another place to live because of these actions. Objective - Vital Signs Vital signs: Vital Signs Temp 97.6 F 12/10/21 11:53 Pulse 54 L 12/10/21 11:53 Resp 18 12/10/21 11:53 BP 124/74 12/10/21 11:53 Pulse Ox 99 12/10/21 11:53 Intake & Output 12/09/21 12/10/21 12/10/21 18:59 06:59 18:59 Intake Total 520 Balance 520 Weight 101.151 kg Intake: Oral 520 - Exam General Appearance: Patient appears to be stated age. He is showered with average hygiene and grooming. He is dressed in hospital attire and maintains fair eye contact. Orientation: He is awake, alert, oriented to person, place, time and situation. Behavior: Patient is guarded. Speech: Speech is fluent, coherent and normal in rate/volume/tone. Mood/Affect: Patient reports his mood as "better than it has been", affect is congruent Suicidality/Homicidality: He denies suicidal or homicidal ideation, plan or intent. Perceptions: He denies auditory or visual hallucinations. Does not appear to be attending to internal stimuli Though content/process: Patient appears to be utilizing defense mechanisms of denial and minimization regarding his substance abuse. No paranoid delusional thought content expressed. Memory and concentration: Grossly intact. Judgment and insight: Poor insight and judgment in regards to substance abuse. - Constitutional General appearance: Present: average body habitus - EENT Eyes: Present: normal appearance - Labs CBC & Chem 7: 12/08/21 16:45 12/09/21 05:40 Assessment and Plan Assessment: IMPRESSIONS: Acute stimulant intoxication, resolved Methamphetamine use disorder Stimulant use disorder Plan: PLAN: -At this time patient DOES NOT meet criteria for inpatient psychiatric admission. He is denying suicidal or homicidal ideations, plan, or intent. He denies his ingestion was a suicide attempt. There is no evidence of psychosis or jamie at this time. Can discontinue one-to-one sitter for safety since patient does not appear to pose an eminent threat to self or others at this time. -Medications: Continue home regimen of Seroquel, Zoloft, and clonidine. -Patient should follow up with primary provider within 1 -2 weeks. -Patient and his family were educated on the importance of patient linking with counseling and substance abuse treatment program as soon as possible following discharge for chronic substance abuse treatment. I have discussed this recommendation with the internal medicine physician, patient's nurse, and [facility] social sciences research scientist as well. He will be provided with information on community substance abuse treatment resources prior to discharge. -Patient was educated to abstain from all mood altering substances. Time with Patient: Greater than 30
[2021-12-16 19:38] LABS: Metanephrine, Free 64 pg/mL (< OR = 57); Normetanephrine, Free 68 pg/mL (< OR = 148); Total, Free (MN + NMN) 132 pg/mL (< OR = 205)
== END 2021-12-10 18:27 | disposition home or self-care (01) ==
LOC: EC 16:22 → 6NMEDSUR 12-09 → 3SCARD 12-09 10:12
PROVIDERS: ADMIT Internal Medicine; ATTEND Internal Medicine
DX: F41.0 Panic disorder [episodic paroxysmal anxiety] (principal); F10.231 Alcohol dependence with withdrawal delirium; I10 Essential (primary) hypertension; F15.129 Other stimulant abuse with intoxication, unspecified; E03.9 Hypothyroidism, unspecified; F31.9 Bipolar disorder, unspecified; R07.89 Other chest pain; R00.2 Palpitations; R61 Generalized hyperhidrosis; R06.4 Hyperventilation; R00.0 Tachycardia, unspecified; F29 Unspecified psychosis not due to a substance or known physiological condition; Z71.41 Alcohol abuse counseling and surveillance of alcoholic; Z71.51 Drug abuse counseling and surveillance of drug abuser; Z74.3 Need for continuous supervision; M54.2 Cervicalgia; F23 Brief psychotic disorder; Z79.899 Other long term (current) drug therapy; Z79.890 Hormone replacement therapy; E07.9 Disorder of thyroid, unspecified; F41.9 Anxiety disorder, unspecified; G90.9 Disorder of the autonomic nervous system, unspecified
CPT/HCPCS: 99285; 96376 ×2; 96374; 96375; 36415; 93005; 83835; 85379; 84439; 80053; 80048; 84443; 83735; 84484; 85025; 85610; 85730; 80306; 73080; 71046; 93975; G0378 ×4; G0480; S4990; J2060; 80320

== ENCOUNTER 2022-01-03 22:47 | Emergency (ER) | payer OTHER ==
[2022-01-03 22:57] VITALS: RESP 18
--- NOTE | 2022-01-03 23:36 | ED ---
Medical Clearance HPI - General Chief complaint: Medical Clearance Stated complaint: [facility] Home Clearance Time Seen by Provider: 01/03/22 23:08 Source: patient Mode of arrival: ambulatory - History of Present Illness Initial comments: Patient is a 26-year-old male presenting with law enforcement for fpc clearance. Law enforcement states that he vomited in the back of the patrol car several times. Patient states that he drinks daily, however today he drank significantly less. At this time he currently has no complaints. At this time he denies any chest pain, shortness of breath, fever, chills, abdominal pain, diarrhea, hematemesis, hematochezia, melena. Home medications: Home Medications Medication Instructions Recorded Confirmed Levothyroxine Sodium [Synthroid] 75 mcg PO DAILY 02/16/21 12/08/21 Metoprolol Succinate (ER) [Toprol 25 mg PO DAILY 02/16/21 12/08/21 XL] QUEtiapine [SEROquel] 100 mg PO HS 02/16/21 12/08/21 Sertraline [Zoloft] 150 mg PO DAILY 02/16/21 12/08/21 cloNIDine HCL [Catapres] 0.1 mg PO DAILY PRN 02/16/21 12/08/21 hydrOXYzine HCL 25 mg PO TID PRN 02/16/21 12/08/21 Previous Rx's Medication Instructions Recorded LORazepam [Ativan] 0.5 mg PO TID PRN #9 tab 12/08/21 Allergies/Adverse reactions: Allergies Allergy/AdvReac Type Severity Reaction Status Date / Time No Known Allergies Allergy Verified 12/08/21 22:15 Review of Systems ROS Statement: Those systems with pertinent positive or pertinent negative responses have been documented in the HPI. ROS Other: All systems not noted in ROS Statement are negative. Past Medical History Past Medical History: Hypertension, Thyroid Disorder Additional Past Medical History / Comment(s): ETOH abuse with withdrawl/seizures, hypothyroid. History of Any Multi-Drug Resistant Organisms: None Reported Past Surgical History: No Surgical Hx Reported Past Anesthesia/Blood Transfusion Reactions: Unable to Obtain Additional Past Anesthesia/Blood Transfusion Reaction / Comment(s): Pt has never had surgery. Past Psychological History: Anxiety, Bipolar, Depression Smoking Status: Vaper Past Alcohol Use History: None Reported Past Drug Use History: None Reported - Past Family History Father Family Medical History: No Reported History Mother Family Medical History: No Reported History family Family Medical History: No Reported History General Exam Limitations: physical limitation (in hand cuffs) General appearance: alert, in no apparent distress Head exam: Present: atraumatic, normocephalic, normal inspection Eye exam: Present: normal appearance, EOMI. Absent: scleral icterus Neck exam: Present: normal inspection Respiratory exam: Present: normal lung sounds bilaterally. Absent: respiratory distress, wheezes, rales, rhonchi, stridor Cardiovascular Exam: Present: regular rate, normal rhythm, normal heart sounds. Absent: systolic murmur, diastolic murmur, rubs, gallop, clicks GI/Abdominal exam: Present: soft, normal bowel sounds. Absent: distended, tenderness, guarding, rebound, rigid Neurological exam: Present: alert, oriented X3, CN II-XII intact Psychiatric exam: Present: normal affect, normal mood Skin exam: Present: warm, dry, intact, normal color. Absent: rash Course Vital Signs 01/03/22 22:54 Temperature 98.3 F Pulse Rate 102 H Respiratory 18 Rate Blood Pressure 153/90 O2 Sat by Pulse 98 Oximetry Medical Decision Making - Medical Decision Making Patient is a 26-year-old male presenting with law enforcement for clearance for fpc. Officers state that he vomited several times in the back of the police car and is currently intoxicated. Patient states that he drinks daily, however today he drinks significantly less than his usual. At this time he has no complaints, he denies any abdominal pain, chest pain, shortness of breath, hematemesis, hematochezia, fever, chills. On exam heart and lungs are clear to auscultation, abdomen has normal bowel sounds in all 4 quadrants, soft, nontender, nondistended. BAT was 0.18. On exam patient is clearly answering questions, no tremors, he is A and O 3, no confusion, he is calm. Patient appears stable for discharge. Follow-up with PCP. Report back to ER if any worsening symptoms. Patient conveyed verbal understanding. I discussed this case with my attending Dr. Rodrigues. Patient was discharged with law enforcement. Disposition Clinical Impression: Nausea & vomiting Disposition: HOME SELF-CARE Condition: Good Instructions (If sedation given, give patient instructions): Acute Nausea and Vomiting (ED) Additional Instructions: Follow-up with PCP. Report back to ER if worsening symptoms. Is patient prescribed a controlled substance at d/c from ED?: No Referrals: Efren Grier [Primary Care Provider] - 1-2 days Time of Disposition: 23:37
[2022-01-03 23:49] VITALS: BP 154/98; PULSE 95; TEMP 97.3
== END 2022-01-03 23:46 | disposition home or self-care (01) ==
LOC: EC 22:47
DX: R11.2 Nausea with vomiting, unspecified (principal); I10 Essential (primary) hypertension; E03.9 Hypothyroidism, unspecified; F17.290 Nicotine dependence, other tobacco product, uncomplicated; Z79.899 Other long term (current) drug therapy; Z79.890 Hormone replacement therapy
CPT/HCPCS: 99283